=== PATIENT | female | born 1965 | race Caucasian/White ===

== ENCOUNTER 2018-08-11 07:10 | Day surgery (SDC) | payer OTHER ==
[~2018-08-11] VITALS: Ht 160 cm; Wt 111.8 kg
[~2018-08-11 07:10] MED LIST: ATEN100T PO; BENZ1TAB10 PO; CITA-106 PO; GABA-531 PO; HALO1 PO; LEVO50 PO; MET750 PO; NAPR250T4 PO; OMEP10 PO; PHEN50 PO; ROSU20TA23 PO; SODIUM CHLORIDE 0.9% 1,000 ML IV ONE; [UNRECOGNIZED DRUG - OTHER]
[2018-08-11] MEDS ORDERED: LIDOCAINE 4% 50 ML SOLUTION TP ONE (07:11)
[2018-08-11] MEDS ORDERED: ALBUTEROL SULFATE 2.5 MG/0.5 ML NEB SOLUTION NEB ONE (07:11)
[2018-08-11] MEDS ORDERED: LIDOCAINE 2% 5 ML JELLY TP ONE (07:11)
[2018-08-11] MEDS ORDERED: BENZOCAINE 20% 50 MCG/SPRAY 57 GM TP ONE (07:11)
[2018-08-11] MEDS ORDERED: FentaNYL CITRATE-PF 100 MCG/2 ML VIAL ONE (08:05)
[2018-08-11] MEDS ORDERED: MIDAZOLAM HCL 2 MG/2 ML VIAL ONE (08:05)
[2018-08-11 08:30] LABS: GLUCOMETER DEV NAME(LOC) SDS.; GLUCOSE,POINT OF CARE 129 MG/DL (70-110)
[2018-08-11] MEDS ORDERED: MethylPREDNISolone SOD SUCC 125 MG/2 ML VIAL IVP ONE (09:00)
[2018-08-11] MEDS ORDERED: MethylPREDNISolone SOD SUCC 125 MG/2 ML VIAL ONE (09:43)
[2018-08-11] MEDS ORDERED: OXYGEN THERAPY IH SCH (20:00)
== END 2018-08-11 10:40 | disposition home or self-care (01) ==
LOC: SURGERY 07:10
PROVIDERS: ATTEND Internal Medicine Critical Care Medicine
DX: J38.4 Edema of larynx (principal); B37.0 Candidal stomatitis; I10 Essential (primary) hypertension; Z87.891 Personal history of nicotine dependence
CPT/HCPCS: 31623; 31624; 71045; 82962; 87015; 87070; 87101; 87205; 87206; 87220; 88108; 88312; 93005; J2250; J2930; J3010; J7030

== ENCOUNTER 2021-06-19 10:39 | Inpatient (IN) | payer OTHER ==
[~2021-06-19] VITALS: Ht 162.6 cm; Wt 114.8 kg
[~2021-06-19 10:39] MED LIST changes: -ATEN100T PO; +ATEN100T92 PO; -CITA-106 PO; +CITA-144 PO; +GABA-1181 PO; -GABA-531 PO; -HALO1 PO; +HALO1TAB2 PO; -MET750 PO; +METH-661 PO; -NAPR250T4 PO; -ROSU20TA23 PO; +ROSU20TA73 PO; -SODIUM CHLORIDE 0.9% 1,000 ML IV ONE
[2021-06-19] MEDS ORDERED: DEXAMETHASONE 4 MG TABLET PO ONE (11:15)
[2021-06-19] MEDS ORDERED: RINGERS SOLUTION,LACTATED 1,000 ML IV ONE (11:15)
[2021-06-19 11:45] LABS: ANION GAP 11 mmol/L (8-16); CALCIUM, TOTAL 8.2 mg/dL (8.8-10.5); CARBON DIOXIDE 27 mmol/L (22-29); CHLORIDE 107 mmol/L (98-107); CREATININE 0.91 mg/dL (0.60-1.30); GLOMERULAR FILTR. RATE CALC > 60 mL/min (>60); GLUCOSE,RANDOM 116 mg/dL (70-110); SODIUM SERUM 145 mmol/L (136-145); UREA NITROGEN, BLOOD 13 mg/dL (7-18)
[2021-06-19 11:50] LABS: ALANINE AMINOTRANSFERASE 55 U/L (12-78); ALBUMIN 2.9 g/dL (3.4-5.0); ALKALINE PHOSPHATASE 68 U/L (46-116); ASPARTATE AMINOTRANSFERASE 70 U/L (15-37); BILIRUBIN,TOTAL 0.4 mg/dL (0.1-1.0); TOTAL PROTEIN, SERUM 7.3 g/dL (6.4-8.2)
[2021-06-19 12:01] LABS: BASOPHILS % (AUTO) 0.3 % (0.0-2.0); EOSINOPHILS % (AUTO) 0.1 % (1.0-6.0); HEMATOCRIT 43.9 % (36-46); HEMOGLOBIN 14.9 g/dL (12.0-16.0); LYMPHOCYTES # (AUTO) 0.7 K/uL (1.0-4.8); LYMPHOCYTES % (AUTO) 11.8 % (22.0-44.0); MEAN CORPUSCULAR HEMOGLOBIN 29.6 pg (26.0-34.0); MEAN CORPUSCULAR HGB CONC 33.9 G/dL (31.0-37.0); MEAN CORPUSCULAR VOLUME 87 fL (80-100); MONOCYTES # (AUTO) 0.6 K/uL (0.1-1.0); MONOCYTES % (AUTO) 9.9 % (2.0-9.0); NEUTROPHILS # (AUTO) 4.7 K/uL (1.8-7.7); NEUTROPHILS % (AUTO) 77.9 % (40.0-70.0); PLATELET COUNT (AUTO) 152 K/uL (150-450); RED BLOOD CELL COUNT(AUTO) 5.04 MIL/uL (4.00-5.20); RED CELL DISTRIBUTION WIDTH 12.7 % (11.5-14.5)
[2021-06-19] MEDS ORDERED: DOXYCYCLINE HYCLATE 100 MG TABLET PO ONE (12:15)
[2021-06-19] MEDS ORDERED: CefTRIAXone 1 GM/DEXTROSE 50 ML IV ONE (12:15)
[2021-06-19 12:28] LABS: COVID AG,FIA SOURCE NASOPHARYNGEAL
[2021-06-19 15:38] VITALS: BP 98/61
[2021-06-19] MEDS ORDERED: ZOLPIDEM TARTRATE 5 MG TABLET PO PRN (17:30)
[2021-06-19] MEDS ORDERED: ALBUTEROL SULFATE 2.5 MG/0.5 ML NEB SOLUTION NEB PRN (17:30)
[2021-06-19] MEDS ORDERED: IPRATROPIUM BROMIDE 0.5 MG/2.5 ML NEB SOLUTION NEB PRN (17:30)
[2021-06-19] MEDS ORDERED: MORPHINE SULFATE 2 MG/ML SYRINGE IVP PRN (17:30)
[2021-06-19] MEDS ORDERED: HYDROCODONE/ACETAMINOPHEN 5-325 MG TABLET PO PRN (17:30)
[2021-06-19] MEDS ORDERED: MAGNESIUM HYDROXIDE SUSPENSION 30 ML UDCUP PO PRN (17:30)
[2021-06-19] MEDS ORDERED: ONDANSETRON HCL 4 MG/2 ML VIAL IVP PRN (17:30)
[2021-06-19] MEDS ORDERED: BISACODYL 10 MG RECTAL RECTAL SUPPOSITORY PR PRN (17:30)
[2021-06-19] MEDS ORDERED: REMDESIVIR 200 MG in SODIUM CHLORIDE 0.9% 250 ML IV ONE (18:00)
[2021-06-19 18:24] LABS: BASOPHILS % (AUTO) 0.7 % (0.0-2.0); EOSINOPHILS % (AUTO) 0 % (1.0-6.0); HEMATOCRIT 43.3 % (36-46); HEMOGLOBIN 14.7 g/dL (12.0-16.0); LYMPHOCYTES # (AUTO) 0.4 K/uL (1.0-4.8); LYMPHOCYTES % (AUTO) 8.4 % (22.0-44.0); MEAN CORPUSCULAR HEMOGLOBIN 29.6 pg (26.0-34.0); MEAN CORPUSCULAR HGB CONC 33.9 G/dL (31.0-37.0); MEAN CORPUSCULAR VOLUME 87 fL (80-100); MONOCYTES # (AUTO) 0.2 K/uL (0.1-1.0); MONOCYTES % (AUTO) 3.5 % (2.0-9.0); NEUTROPHILS # (AUTO) 4.4 K/uL (1.8-7.7); PLATELET COUNT (AUTO) 160 K/uL (150-450); RED BLOOD CELL COUNT(AUTO) 4.97 MIL/uL (4.00-5.20); RED CELL DISTRIBUTION WIDTH 12.9 % (11.5-14.5)
[2021-06-19 18:27] LABS: NEUTROPHILS % (AUTO) 87.4 % (40.0-70.0)
[2021-06-19 18:54] LABS: ALANINE AMINOTRANSFERASE 59 U/L (12-78); ALBUMIN 2.8 g/dL (3.4-5.0); ALKALINE PHOSPHATASE 71 U/L (46-116); ANION GAP 8 mmol/L (8-16); ASPARTATE AMINOTRANSFERASE 71 U/L (15-37); BILIRUBIN,TOTAL 0.3 mg/dL (0.1-1.0); C-REACTIVE PROTEIN QUANT 5.68 mg/dL (0.00-0.30); CALCIUM, TOTAL 8.6 mg/dL (8.8-10.5); CARBON DIOXIDE 29 mmol/L (22-29); CHLORIDE 106 mmol/L (98-107); CREATININE 0.91 mg/dL (0.60-1.30); FERRITIN 615 ng/mL (8-252); GLOMERULAR FILTR. RATE CALC > 60 mL/min (>60); GLUCOSE,RANDOM 152 mg/dL (70-110); LACTATE DEHYDROGENASE 424 U/L (81-234); POTASSIUM 4.5 mmol/L (3.5-5.1); SODIUM SERUM 143 mmol/L (136-145); TOTAL PROTEIN, SERUM 7.4 g/dL (6.4-8.2); UREA NITROGEN, BLOOD 13 mg/dL (7-18)
[2021-06-19 19:27] VITALS: BP 122/65
[2021-06-19] MEDS ORDERED: SODIUM CHLORIDE 0.9% 250 ML IV ONE ×2 (20:05→20:22)
[2021-06-19] MEDS: CefTRIAXone SODIUM 2 GM in DEXTROSE 5%-WATER 50 ML IV SCH (21:03)
[2021-06-19] MEDS: AZITHROMYCIN 500 MG/NS 250 ML IV SCH (21:04)
[2021-06-19] MEDS: DOCUSATE SODIUM 100 MG CAPSULE PO SCH (21:04)
[2021-06-19 23:22] VITALS: BP 111/67
[2021-06-20] MEDS: HEPARIN SODIUM,PORCINE 5,000 UNITS/ML VIAL SQ SCH ×4 (00:39→23:25)
[2021-06-20 04:07] VITALS: BP 114/74
[2021-06-20] MEDS: ACETAMINOPHEN 325 MG TABLET PO PRN ×3 (06:35→20:28)
[2021-06-20 07:09] LABS: BASOPHILS % (AUTO) 0.3 % (0.0-2.0); EOSINOPHILS % (AUTO) 0 % (1.0-6.0); LYMPHOCYTES # (AUTO) 0.8 K/uL (1.0-4.8); LYMPHOCYTES % (AUTO) 17.8 % (22.0-44.0); MEAN CORPUSCULAR HEMOGLOBIN 29.9 pg (26.0-34.0); MEAN CORPUSCULAR HGB CONC 34.2 G/dL (31.0-37.0); MEAN CORPUSCULAR VOLUME 88 fL (80-100); MONOCYTES # (AUTO) 0.6 K/uL (0.1-1.0); MONOCYTES % (AUTO) 13.5 % (2.0-9.0); NEUTROPHILS % (AUTO) 68.4 % (40.0-70.0); RED BLOOD CELL COUNT(AUTO) 4.68 MIL/uL (4.00-5.20); RED CELL DISTRIBUTION WIDTH 12.6 % (11.5-14.5)
[2021-06-20 07:37] LABS: ALANINE AMINOTRANSFERASE 56 U/L (12-78); ALBUMIN 2.7 g/dL (3.4-5.0); ALKALINE PHOSPHATASE 70 U/L (46-116); ANION GAP 8 mmol/L (8-16); ASPARTATE AMINOTRANSFERASE 63 U/L (15-37); BILIRUBIN,TOTAL 0.3 mg/dL (0.1-1.0); C-REACTIVE PROTEIN QUANT 5.84 mg/dL (0.00-0.30); CALCIUM, TOTAL 8.7 mg/dL (8.8-10.5); CARBON DIOXIDE 27 mmol/L (22-29); CHLORIDE 108 mmol/L (98-107); CREATININE 0.81 mg/dL (0.60-1.30); FERRITIN 548 ng/mL (8-252); GLOMERULAR FILTR. RATE CALC > 60 mL/min (>60); GLUCOSE,RANDOM 141 mg/dL (70-110); POTASSIUM 4.5 mmol/L (3.5-5.1); SODIUM SERUM 143 mmol/L (136-145); TOTAL PROTEIN, SERUM 7.4 g/dL (6.4-8.2); UREA NITROGEN, BLOOD 15 mg/dL (7-18)
[2021-06-20 07:49] VITALS: BP 131/90
[2021-06-20] MEDS: DOCUSATE SODIUM 100 MG CAPSULE PO SCH ×2 (08:27→20:28)
[2021-06-20] MEDS: PANTOPRAZOLE SODIUM 40 MG/VIAL IVP SCH (08:27)
[2021-06-20] MEDS: DEXAMETHASONE SOD PHOS 4 MG/ML VIAL IVP SCH (08:27)
[2021-06-20 11:11] VITALS: BP 107/77
[2021-06-20 12:05] LABS: PLATELET COUNT (AUTO) 164 K/uL (150-450)
[2021-06-20] MEDS: BENZONATATE 100 MG CAPSULE PO SCH ×3 (12:26→20:27)
[2021-06-20 15:24] VITALS: BP 108/63
[2021-06-20] MEDS ORDERED: BENZONATATE 100 MG CAPSULE PO SCH (16:00)
[2021-06-20] MEDS: REMDESIVIR 100 MG in SODIUM CHLORIDE 0.9% 250 ML IV SCH (20:27)
[2021-06-20] MEDS: CefTRIAXone SODIUM 2 GM in DEXTROSE 5%-WATER 50 ML IV SCH (20:42)
[2021-06-20] MEDS: AZITHROMYCIN 500 MG/NS 250 ML IV SCH (20:42)
[2021-06-20 21:24] VITALS: BP 145/71
[2021-06-21 01:34] VITALS: BP 113/65
[2021-06-21 06:18] LABS: BASOPHILS % (AUTO) 0.2 % (0.0-2.0); EOSINOPHILS % (AUTO) 0 % (1.0-6.0); HEMATOCRIT 42.4 % (36-46); HEMOGLOBIN 14.3 g/dL (12.0-16.0); MEAN CORPUSCULAR HEMOGLOBIN 29.6 pg (26.0-34.0); MEAN CORPUSCULAR HGB CONC 33.6 G/dL (31.0-37.0); MEAN CORPUSCULAR VOLUME 88 fL (80-100); MONOCYTES # (AUTO) 0.9 K/uL (0.1-1.0); MONOCYTES % (AUTO) 9.9 % (2.0-9.0); NEUTROPHILS # (AUTO) 6.9 K/uL (1.8-7.7); NEUTROPHILS % (AUTO) 78.9 % (40.0-70.0); PLATELET COUNT (AUTO) 199 K/uL (150-450); RED BLOOD CELL COUNT(AUTO) 4.82 MIL/uL (4.00-5.20); RED CELL DISTRIBUTION WIDTH 12.8 % (11.5-14.5)
[2021-06-21 06:57] LABS: ALANINE AMINOTRANSFERASE 48 U/L (12-78); ALBUMIN 2.6 g/dL (3.4-5.0); ALKALINE PHOSPHATASE 64 U/L (46-116); ANION GAP 6 mmol/L (8-16); ASPARTATE AMINOTRANSFERASE 53 U/L (15-37); BILIRUBIN,TOTAL 0.2 mg/dL (0.1-1.0); C-REACTIVE PROTEIN QUANT 2.12 mg/dL (0.00-0.30); CALCIUM, TOTAL 8.6 mg/dL (8.8-10.5); CARBON DIOXIDE 30 mmol/L (22-29); CHLORIDE 109 mmol/L (98-107); CREATININE 0.92 mg/dL (0.60-1.30); FERRITIN 498 ng/mL (8-252); GLOMERULAR FILTR. RATE CALC > 60 mL/min (>60); GLUCOSE,RANDOM 138 mg/dL (70-110); POTASSIUM 4.8 mmol/L (3.5-5.1); SODIUM SERUM 145 mmol/L (136-145); TOTAL PROTEIN, SERUM 6.9 g/dL (6.4-8.2); UREA NITROGEN, BLOOD 21 mg/dL (7-18)
[2021-06-21 07:13] VITALS: BP 100/69
[2021-06-21] MEDS: BENZONATATE 100 MG CAPSULE PO SCH ×3 (07:56→21:24)
[2021-06-21] MEDS: PANTOPRAZOLE SODIUM 40 MG/VIAL IVP SCH (07:56)
[2021-06-21] MEDS: DOCUSATE SODIUM 100 MG CAPSULE PO SCH ×2 (07:56→21:24)
[2021-06-21] MEDS: HEPARIN SODIUM,PORCINE 5,000 UNITS/ML VIAL SQ SCH ×2 (07:56→15:58)
[2021-06-21] MEDS: DEXAMETHASONE SOD PHOS 4 MG/ML VIAL IVP SCH (07:56)
[2021-06-21 07:57] VITALS: BP 107/57
[2021-06-21 10:46] VITALS: BP 112/52
[2021-06-21] MEDS: ACETAMINOPHEN 325 MG TABLET PO PRN (11:35)
[2021-06-21 16:15] VITALS: BP 120/51
[2021-06-21] MEDS: GuaiFENesin/CODEINE [SUGAR FREE] 200-20MG/10 ML SYRUP UDCUP PO PRN ×2 (16:39→23:49)
[2021-06-21 19:51] VITALS: BP 115/75
[2021-06-21] MEDS: REMDESIVIR 100 MG in SODIUM CHLORIDE 0.9% 250 ML IV SCH (20:20)
[2021-06-21] MEDS: CefTRIAXone SODIUM 2 GM in DEXTROSE 5%-WATER 50 ML IV SCH (21:24)
[2021-06-21] MEDS: AZITHROMYCIN 500 MG/NS 250 ML IV SCH (21:25)
[2021-06-21] MEDS ORDERED: METF-1211 PO (23:31)
[2021-06-21] MEDS ORDERED: NITR0.4T50 SL (23:31)
[2021-06-21] MEDS ORDERED: ISOS30TA92 PO (23:31)
[2021-06-21] MEDS ORDERED: TRAM50TA4 PO (23:31)
[2021-06-21] MEDS ORDERED: FLUT220HFA IH (23:31)
[2021-06-21] MEDS ORDERED: ATOR40TA28 PO (23:31)
[2021-06-21] MEDS ORDERED: LEVO50 PO (23:31)
[2021-06-21] MEDS ORDERED: CYCL10TA17 PO (23:31)
[2021-06-21] MEDS ORDERED: MONT-35 PO (23:31)
[2021-06-21] MEDS ORDERED: ALBU8HFA IH (23:31)
[2021-06-21] MEDS ORDERED: AMLO5TAB66 PO (23:31)
[2021-06-21] MEDS ORDERED: METO50TA9 PO (23:31)
[2021-06-22 00:22] VITALS: BP 119/61
[2021-06-22] MEDS: HEPARIN SODIUM,PORCINE 5,000 UNITS/ML VIAL SQ SCH ×3 (01:03→15:51)
[2021-06-22 05:17] VITALS: BP 116/72
[2021-06-22 06:02] LABS: BASOPHILS % (AUTO) 0.1 % (0.0-2.0); EOSINOPHILS % (AUTO) 0.1 % (1.0-6.0); HEMATOCRIT 40.8 % (36-46); HEMOGLOBIN 13.9 g/dL (12.0-16.0); LYMPHOCYTES % (AUTO) 9.5 % (22.0-44.0); MEAN CORPUSCULAR HEMOGLOBIN 29.5 pg (26.0-34.0); MEAN CORPUSCULAR HGB CONC 34.1 G/dL (31.0-37.0); MEAN CORPUSCULAR VOLUME 86 fL (80-100); MONOCYTES # (AUTO) 0.8 K/uL (0.1-1.0); MONOCYTES % (AUTO) 7.6 % (2.0-9.0); NEUTROPHILS # (AUTO) 8.8 K/uL (1.8-7.7); NEUTROPHILS % (AUTO) 82.7 % (40.0-70.0); PLATELET COUNT (AUTO) 208 K/uL (150-450); RED BLOOD CELL COUNT(AUTO) 4.72 MIL/uL (4.00-5.20); RED CELL DISTRIBUTION WIDTH 12.6 % (11.5-14.5)
[2021-06-22 06:28] LABS: ALANINE AMINOTRANSFERASE 61 U/L (12-78); ALBUMIN 2.4 g/dL (3.4-5.0); ALKALINE PHOSPHATASE 64 U/L (46-116); ANION GAP 7 mmol/L (8-16); ASPARTATE AMINOTRANSFERASE 61 U/L (15-37); BILIRUBIN,TOTAL 0.2 mg/dL (0.1-1.0); C-REACTIVE PROTEIN QUANT 0.97 mg/dL (0.00-0.30); CALCIUM, TOTAL 8.2 mg/dL (8.8-10.5); CARBON DIOXIDE 30 mmol/L (22-29); CHLORIDE 108 mmol/L (98-107); CREATININE 0.79 mg/dL (0.60-1.30); FERRITIN 434 ng/mL (8-252); GLOMERULAR FILTR. RATE CALC > 60 mL/min (>60); GLUCOSE,RANDOM 108 mg/dL (70-110); SODIUM SERUM 145 mmol/L (136-145); TOTAL PROTEIN, SERUM 6.2 g/dL (6.4-8.2); UREA NITROGEN, BLOOD 18 mg/dL (7-18)
[2021-06-22 08:18] VITALS: BP 108/64
[2021-06-22] MEDS: BENZONATATE 100 MG CAPSULE PO SCH ×3 (08:37→20:33)
[2021-06-22] MEDS: DEXAMETHASONE SOD PHOS 4 MG/ML VIAL IVP SCH (08:38)
[2021-06-22] MEDS: PANTOPRAZOLE SODIUM 40 MG/VIAL IVP SCH (08:38)
[2021-06-22 08:51] LABS: GLUCOMETER DEV NAME(LOC) 5N.1C; GLUCOSE,POINT OF CARE 105 MG/DL (70-110)
[2021-06-22] MEDS: DOCUSATE SODIUM 100 MG CAPSULE PO SCH ×2 (08:53→20:34)
[2021-06-22 12:00] VITALS: BP 112/65
[2021-06-22] MEDS: GuaiFENesin/CODEINE [SUGAR FREE] 200-20MG/10 ML SYRUP UDCUP PO PRN (13:48)
[2021-06-22 15:41] VITALS: BP 106/53
[2021-06-22 19:55] VITALS: BP 104/63
[2021-06-22] MEDS: REMDESIVIR 100 MG in SODIUM CHLORIDE 0.9% 250 ML IV SCH (20:33)
[2021-06-22] MEDS: CefTRIAXone SODIUM 2 GM in DEXTROSE 5%-WATER 50 ML IV SCH (20:34)
[2021-06-22] MEDS: AZITHROMYCIN 500 MG/NS 250 ML IV SCH (22:08)
[2021-06-23 00:10] VITALS: BP 102/78
[2021-06-23] MEDS: HEPARIN SODIUM,PORCINE 5,000 UNITS/ML VIAL SQ SCH ×3 (01:36→15:40)
[2021-06-23 04:10] VITALS: BP 106/64
[2021-06-23 07:00] VITALS: BP 104/62
[2021-06-23 07:36] LABS: BASOPHILS % (AUTO) 0.3 % (0.0-2.0); EOSINOPHILS % (AUTO) 0.2 % (1.0-6.0); HEMOGLOBIN 13.7 g/dL (12.0-16.0); LYMPHOCYTES % (AUTO) 12.2 % (22.0-44.0); MEAN CORPUSCULAR HEMOGLOBIN 29.8 pg (26.0-34.0); MEAN CORPUSCULAR HGB CONC 34.3 G/dL (31.0-37.0); MEAN CORPUSCULAR VOLUME 87 fL (80-100); MONOCYTES # (AUTO) 0.7 K/uL (0.1-1.0); MONOCYTES % (AUTO) 8.2 % (2.0-9.0); NEUTROPHILS # (AUTO) 6.7 K/uL (1.8-7.7); NEUTROPHILS % (AUTO) 79.1 % (40.0-70.0); PLATELET COUNT (AUTO) 202 K/uL (150-450); RED BLOOD CELL COUNT(AUTO) 4.61 MIL/uL (4.00-5.20); RED CELL DISTRIBUTION WIDTH 12.3 % (11.5-14.5)
[2021-06-23 08:25] LABS: ALANINE AMINOTRANSFERASE 77 U/L (12-78); ALBUMIN 2.4 g/dL (3.4-5.0); ALKALINE PHOSPHATASE 71 U/L (46-116); ANION GAP 7 mmol/L (8-16); ASPARTATE AMINOTRANSFERASE 52 U/L (15-37); BILIRUBIN,TOTAL 0.2 mg/dL (0.1-1.0); C-REACTIVE PROTEIN QUANT 1.46 mg/dL (0.00-0.30); CALCIUM, TOTAL 8.2 mg/dL (8.8-10.5); CARBON DIOXIDE 29 mmol/L (22-29); CHLORIDE 107 mmol/L (98-107); CREATININE 0.72 mg/dL (0.60-1.30); FERRITIN 408 ng/mL (8-252); GLOMERULAR FILTR. RATE CALC > 60 mL/min (>60); GLUCOSE,RANDOM 111 mg/dL (70-110); POTASSIUM 4.1 mmol/L (3.5-5.1); SODIUM SERUM 143 mmol/L (136-145); TOTAL PROTEIN, SERUM 6.3 g/dL (6.4-8.2); UREA NITROGEN, BLOOD 18 mg/dL (7-18)
[2021-06-23] MEDS: DEXAMETHASONE SOD PHOS 4 MG/ML VIAL IVP SCH (08:49)
[2021-06-23] MEDS: DOCUSATE SODIUM 100 MG CAPSULE PO SCH ×2 (08:49→20:46)
[2021-06-23] MEDS: BENZONATATE 100 MG CAPSULE PO SCH ×3 (08:49→20:46)
[2021-06-23] MEDS: PANTOPRAZOLE SODIUM 40 MG/VIAL IVP SCH (09:00)
[2021-06-23] MEDS ORDERED: ALBUTEROL SULFATE HFA 90 MCG/PUFF 8 GM INHALER IH PRN (11:15)
[2021-06-23] MEDS ORDERED: NITROGLYCERIN 0.4 MG SUBLINGUAL TABLET #25 SL PRN (11:15)
[2021-06-23] MEDS ORDERED: TraMADol HCL 50 MG TABLET PO PRN (11:15)
[2021-06-23 12:08] VITALS: BP 114/52
[2021-06-23] MEDS: GuaiFENesin/CODEINE [SUGAR FREE] 200-20MG/10 ML SYRUP UDCUP PO PRN (13:19)
[2021-06-23 15:16] VITALS: BP 107/66
[2021-06-23 20:40] VITALS: BP 112/64
[2021-06-23] MEDS: MONTELUKAST SODIUM 10 MG TABLET PO SCH (20:46)
[2021-06-23] MEDS: CYCLOBENZAPRINE HCL 10 MG TABLET PO SCH (20:46)
[2021-06-23] MEDS: REMDESIVIR 100 MG in SODIUM CHLORIDE 0.9% 250 ML IV SCH (20:47)
[2021-06-23] MEDS: CefTRIAXone SODIUM 2 GM in DEXTROSE 5%-WATER 50 ML IV SCH (20:49)
[2021-06-23] MEDS: AZITHROMYCIN 500 MG/NS 250 ML IV SCH (22:54)
[2021-06-24] VITALS (8 sets, daily range): BP systolic 83–127; BP diastolic 51–72
[2021-06-24] MEDS: HEPARIN SODIUM,PORCINE 5,000 UNITS/ML VIAL SQ SCH ×4 (00:16→23:39)
[2021-06-24] MEDS: GuaiFENesin/CODEINE [SUGAR FREE] 200-20MG/10 ML SYRUP UDCUP PO PRN ×2 (00:17→15:26)
[2021-06-24] MEDS: LEVOTHYROXINE SODIUM 50 MCG TABLET PO SCH (06:09)
[2021-06-24] MEDS: BENZONATATE 100 MG CAPSULE PO SCH ×3 (08:37→20:19)
[2021-06-24] MEDS: PANTOPRAZOLE SODIUM 40 MG/VIAL IVP SCH (08:37)
[2021-06-24] MEDS: ATORVASTATIN CALCIUM 40 MG TABLET PO SCH (08:38)
[2021-06-24] MEDS: CYCLOBENZAPRINE HCL 10 MG TABLET PO SCH ×2 (08:38→20:19)
[2021-06-24] MEDS: ISOSORBIDE MONONITRATE 30 MG ER TABLET PO SCH ×2 (08:38→09:00)
[2021-06-24] MEDS: DEXAMETHASONE SOD PHOS 4 MG/ML VIAL IVP SCH (08:39)
[2021-06-24] MEDS: DOCUSATE SODIUM 100 MG CAPSULE PO SCH ×2 (08:49→20:19)
[2021-06-24] MEDS ORDERED: METOPROLOL SUCCINATE 50 MG ER TABLET PO SCH (09:00)
[2021-06-24] MEDS ORDERED: AmLODIPine BESYLATE 5 MG TABLET PO SCH (09:00)
[2021-06-24] MEDS: ACETAMINOPHEN 325 MG TABLET PO PRN ×2 (10:13→15:27)
[2021-06-24] MEDS: MONTELUKAST SODIUM 10 MG TABLET PO SCH (20:19)
[2021-06-24] MEDS: CefTRIAXone SODIUM 2 GM in DEXTROSE 5%-WATER 50 ML IV SCH (20:19)
[2021-06-24] MEDS: AZITHROMYCIN 500 MG/NS 250 ML IV SCH (21:52)
[2021-06-25] MEDS: GuaiFENesin/CODEINE [SUGAR FREE] 200-20MG/10 ML SYRUP UDCUP PO PRN ×3 (02:04→16:32)
[2021-06-25 03:17] VITALS: BP 128/70
[2021-06-25] MEDS: LEVOTHYROXINE SODIUM 50 MCG TABLET PO SCH (05:53)
[2021-06-25 08:20] VITALS: BP 127/68
[2021-06-25] MEDS: DOCUSATE SODIUM 100 MG CAPSULE PO SCH ×3 (09:00→21:13)
[2021-06-25] MEDS: HEPARIN SODIUM,PORCINE 5,000 UNITS/ML VIAL SQ SCH ×2 (09:24→16:32)
[2021-06-25] MEDS: PANTOPRAZOLE SODIUM 40 MG/VIAL IVP SCH (09:24)
[2021-06-25] MEDS: ATORVASTATIN CALCIUM 40 MG TABLET PO SCH (09:24)
[2021-06-25] MEDS: CYCLOBENZAPRINE HCL 10 MG TABLET PO SCH ×2 (09:25→21:13)
[2021-06-25] MEDS: DEXAMETHASONE SOD PHOS 4 MG/ML VIAL IVP SCH (09:25)
[2021-06-25] MEDS: BENZONATATE 100 MG CAPSULE PO SCH ×3 (09:36→21:13)
[2021-06-25 11:53] VITALS: BP 108/60
[2021-06-25 16:12] VITALS: BP 99/62
[2021-06-25 19:36] VITALS: BP 117/61
[2021-06-25] MEDS: MONTELUKAST SODIUM 10 MG TABLET PO SCH (21:13)
[2021-06-25] MEDS: AZITHROMYCIN 500 MG/NS 250 ML IV SCH (21:14)
[2021-06-25] MEDS: CefTRIAXone SODIUM 2 GM in DEXTROSE 5%-WATER 50 ML IV SCH (21:14)
[2021-06-26] VITALS (7 sets, daily range): BP systolic 93–127; BP diastolic 48–66
[2021-06-26] MEDS: HEPARIN SODIUM,PORCINE 5,000 UNITS/ML VIAL SQ SCH ×4 (00:30→21:26)
[2021-06-26] MEDS: LEVOTHYROXINE SODIUM 50 MCG TABLET PO SCH (05:53)
[2021-06-26] MEDS: DOCUSATE SODIUM 100 MG CAPSULE PO SCH ×2 (12:30→21:26)
[2021-06-26] MEDS: ATORVASTATIN CALCIUM 40 MG TABLET PO SCH (12:30)
[2021-06-26] MEDS: DEXAMETHASONE SOD PHOS 4 MG/ML VIAL IVP SCH (12:30)
[2021-06-26] MEDS: BENZONATATE 100 MG CAPSULE PO SCH ×3 (12:30→21:27)
[2021-06-26] MEDS: CYCLOBENZAPRINE HCL 10 MG TABLET PO SCH ×2 (12:31→21:26)
[2021-06-26] MEDS: PANTOPRAZOLE SODIUM 40 MG/VIAL IVP SCH (12:31)
[2021-06-26] MEDS: MONTELUKAST SODIUM 10 MG TABLET PO SCH (21:26)
[2021-06-26] MEDS: CefTRIAXone SODIUM 2 GM in DEXTROSE 5%-WATER 50 ML IV SCH (21:27)
[2021-06-26] MEDS: AZITHROMYCIN 500 MG/NS 250 ML IV SCH (21:27)
[2021-06-27] MEDS: GuaiFENesin/CODEINE [SUGAR FREE] 200-20MG/10 ML SYRUP UDCUP PO PRN (02:59)
[2021-06-27 05:00] VITALS: BP 124/76
[2021-06-27] MEDS: LEVOTHYROXINE SODIUM 50 MCG TABLET PO SCH (06:32)
[2021-06-27 08:13] VITALS: BP 146/52
[2021-06-27] MEDS: BENZONATATE 100 MG CAPSULE PO SCH ×2 (09:40→16:07)
[2021-06-27] MEDS: DOCUSATE SODIUM 100 MG CAPSULE PO SCH (09:41)
[2021-06-27] MEDS: ATORVASTATIN CALCIUM 40 MG TABLET PO SCH (09:41)
[2021-06-27] MEDS: DEXAMETHASONE SOD PHOS 4 MG/ML VIAL IVP SCH (09:42)
[2021-06-27] MEDS: PANTOPRAZOLE SODIUM 40 MG/VIAL IVP SCH (09:42)
[2021-06-27] MEDS: HEPARIN SODIUM,PORCINE 5,000 UNITS/ML VIAL SQ SCH ×2 (09:43→16:07)
[2021-06-27] MEDS: CYCLOBENZAPRINE HCL 10 MG TABLET PO SCH (10:28)
[2021-06-27 11:54] VITALS: BP 134/77
[2021-06-27] MEDS ORDERED: DEXA2 PO (14:14)
[2021-06-27 16:05] VITALS: BP 121/60
== END 2021-06-27 18:00 | disposition home or self-care (01) | DRG 137 ==
LOC: EMS 10:39 → 5N 13:38
PROVIDERS: ADMIT Hospitalist; ATTEND Hospitalist
PROC: XW033E5 Introduction of Remdesivir Anti-infective into Peripheral Vein, Percutaneous Approach, New Technology Group 5 (ICD-10-PCS; 2021-06-19)
PROC: 5A0935A Assistance with Respiratory Ventilation, Less than 24 Consecutive Hours, High Flow/Velocity Cannula (ICD-10-PCS; principal; 2021-06-22)
DX: U07.1 COVID-19 (principal); J96.01 Acute respiratory failure with hypoxia; J12.82 Pneumonia due to coronavirus disease 2019; R56.9 Unspecified convulsions; E03.9 Hypothyroidism, unspecified; E78.5 Hyperlipidemia, unspecified; I10 Essential (primary) hypertension; F17.210 Nicotine dependence, cigarettes, uncomplicated; R79.89 Other specified abnormal findings of blood chemistry; D72.810 Lymphocytopenia; E78.00 Pure hypercholesterolemia, unspecified; Z88.8 Allergy status to other drugs, medicaments and biological substances
CPT/HCPCS: 71045; 80053; 82728; 82962; 83605; 83615; 84145; 84439; 84443; 84481; 84484; 85025; 85379; 86140; 93005; 93306; 99285; C9113; J0456; J0696; J1100; J1644; J2405; J7050; J7060; J7120; J8540; Q9967; 36415-L1; 36415-TC